=== PATIENT | female | born 1970 | race Caucasian/White ===

== ENCOUNTER → 2016-07-01 | Day surgery (SDC) | payer OTHER ==
[~2016-07-01] MED LIST: AMITRYPTYLINE PO; ATARAX PO; BENTYL20 M1 PO; BENZONATATE PO; BRINTELLIX; BUSPAR PO; CIPRO PO; CIPRO750 MG PO; CLEOCIN HCL300 M1 PO; DICLOFENAC; FLAGYL PO; FLEXERIL PO; GEODAN PO; HYDROCODON-ACE1 EAC7 PO; LEXAPRO PO; LISINOPRIL PO; LORATADINE PO; MIRAPEX; NAPROXEN PO; OMEPRAZOLE; PERCOCET 5/321 UDTAB PO; PHENERGAN PO; PHENERGAN SUPP25 MG PR; PHENERGAN25 MG PO; PRAVACHOL PO; PRAVACHOL20 MG PO; PREDNISONE PO; PRILOSEC PO; PROTONIX; PROZAC PO; REQUIP; ROBAXIN500 MG; SEROQUEL PO; STOMACH PILL; TAMIFLU75 MG PO; TIGAN PO; ULTRAM PO; VICODIN 5/1 TAB 5/50 PO; WELLBUTRIN PO; WELLBUTRIN SR150 MG PO; ZOCOR PO; ZOFRAN ODT4 MG PO; ZOFRAN PO
--- NOTE | ~2016-07-01 | OR ---
Unit #: [id number] #: [id number] Patient: GONZALES GARSIA [id number] [address] [place], [place] [address] [id number] MR#: [id number] NAME: GONZALES GARSIA. ROOM: Date of Procedure: 07/01/2016 Admission Date: 07/01/2016 Surgeon: Donald White M.D. : 1970 Attending Physician: Donald White M.D. Referring Physician: Donald White M.D. Primary Care Physician: Lisa Okeefe A.P.R.N. OPERATIVE REPORT PREOPERATIVE DIAGNOSES The patient has presented with history of intermittent nausea, vomiting, dyspepsia, epigastric pain, as well as dysphagia and diarrhea. She also has a history of early satiety. She tells me she was diagnosed having gastroparesis, but is not taking any prokinetic drugs; seemingly, they were ineffective. She has seen Dr. Valdez in the past and has had extensive workup. The patient is also on multiple psychotropic drugs. PROCEDURE PERFORMED Upper gastrointestinal endoscopy and biopsy. POSTOPERATIVE DIAGNOSES Completely normal examination up to third part of the duodenum. Biopsies were obtained from the antrum for CLOtest. RECOMMENDATIONS The patient does not have any mucosal abnormality in the upper gastrointestinal tract. I also seriously doubt whether she has gastroparesis. We will try and review her old records again and then leave any recommendations. I also think she is on multiple psychotropic drugs, which needs to be fine tuned by her psychiatrist. SEDATION USED MAC. DESCRIPTION OF PROCEDURE Following detailed explanation of potential risks and complications of an upper endoscopy, namely perforation, bleeding, and complications related to sedation, the patient was brought to GI lab and laid in the left lateral decubitus position. Lubricated tip of the Olympus video upper endoscope was passed through the bite block into the proximal esophagus under direct vision. The entire esophageal mucosa was examined and appeared normal. Z-line was nicely demarcated with there being no esophagitis or hiatus hernia. The scope was then advanced into the gastric cavity and the latter was insufflated. Mucosa of the fundus, body, and antrum was examined and appeared unremarkable. Pylorus was intubated with visualization of the normal duodenal bulb and second and third part of the duodenum. Upon withdrawal and retroflexion, the incisura, cardia, and greater curve were examined and no additional findings were noted. The scope was then withdrawn into the distal esophagus. The entire esophageal mucosa was examined all the way up to pharynx and no additional findings were noted. The patient tolerated the Unit #: [id number] #: [id number] Patient: GONZALES GARSIA procedure without any postprocedure complications. Dictated by... Elfego Paul/dave TD: 07/01/2016 22:27 JOB #: [id number] CC: Lisa Okeefe A.P.R.N. OPERATIVE REPORT Page 1 of 1 X Donald White MD X PROCEDURE OPERATIVE NOTE
== END | disposition home or self-care (01) ==
LOC: COPS 08:01
DX: R13.10 Dysphagia, unspecified (principal); R10.13 Epigastric pain; R19.7 Diarrhea, unspecified; R11.2 Nausea with vomiting, unspecified
CPT/HCPCS: 87077